=== PATIENT | female | born 1995 | race Caucasian/White ===

== ENCOUNTER → 2019-10-26 11:51 | Outpatient (CLI) | payer OTHER, SELFPAY ==
--- NOTE | 2019-10-26 | DI.MRI.S_ITS ---
PROCEDURE: MR FOOT RT WO/W CON INDICATIONS: Other acute osteomyelitis, right ankle and foot TECHNIQUE: Noncontrast sagittal T1 spin echo and T2 fast spin echo with fat saturation, long-axis T1 spin echo and T2 fast spin echo with fat saturation; short-axis T1 spin echo, proton density fast spin echo, and T2 fast spin echo with fat saturation through the forefoot. Post-contrast short axis, long axis, and sagittal T1 spin echo with fat saturation through the forefoot. COMPARISON: None. FINDINGS: Image quality: Diagnostic. Bones and joints: No suspicious osseous enhancement. No bone marrow contusions or metatarsal stress fractures. The sesamoid bones appear in expected positions, without internal edema. Mild degenerative changes are evident involving the 1st metatarsal-phalangeal joint without associated hallux valgus. No intraosseous lesions. Soft tissues: No suspicious soft tissue enhancement. The visualized plantar foot muscles demonstrate normal signal and bulk. Visualized flexor and extensor tendons appear intact, without tenosynovitis. The distal insertions of the peroneus brevis and longus tendons appear intact. The principal Lisfranc ligament appears intact. No soft tissue ganglion cysts or fluid collections. IMPRESSION: Unremarkable right foot radiographs. No evidence of osteomyelitis. No soft tissue abscess or drainable fluid collection is evident. Dictated by: Boris Lima M.D. on 10/26/2019 at 12:58 Approved by: Boris Lima M.D. on 10/26/2019 at 13:05
== END ==
PROVIDERS: Referring Provider Podiatrist Foot & Ankle Surgery; Visit Provider Podiatrist Foot & Ankle Surgery
DX: M86.171 Other acute osteomyelitis, right ankle and foot (principal)
CPT/HCPCS: 73720